=== PATIENT | female | born 1990 | race African-American/Black ===

== ENCOUNTER 2018-05-26 07:56 | Day surgery (SDC) | payer OTHER ==
[2018-05-26] MEDS ORDERED: fentaNYL 100 MCG/2 ML INJECTION (J3010) As Ordered (07:59)
[2018-05-26] MEDS ORDERED: NEOSTIGMINE 10 MG/10 ML VIAL (J2710) As Ordered (07:59)
[2018-05-26] MEDS ORDERED: GLYCOPYRROLATE INJ 0.2 MG/ML 2 ML VIAL As Ordered (07:59)
[2018-05-26] MEDS ORDERED: LIDOCAINE 2% INJ 100 MG/5 ML SDV (FOR ANES.) As Ordered (07:59)
[2018-05-26] MEDS ORDERED: PROPOFOL 200 MG/20 ML VIAL As Ordered (07:59)
[2018-05-26] MEDS ORDERED: MIDAZOLAM INJ 2 MG/2 ML VIAL (J2250) As Ordered (07:59)
[2018-05-26] MEDS ORDERED: ONDANSETRON 4MG/2ML VIAL (J2405) As Ordered (07:59)
[2018-05-26] MEDS ORDERED: KETOROLAC 60 MG/2 ML VIAL (J1885) As Ordered (07:59)
[2018-05-26] MEDS ORDERED: ROCURONIUM BROMIDE 50 MG/5 ML VIAL As Ordered (07:59)
[2018-05-26] MEDS ORDERED: dexameTHASONE 4 MG/ML 1ML VIAL (J1100) As Ordered (07:59)
[2018-05-26] MEDS ORDERED: LR 1,000 ML IV ×3 (08:15→11:30)
[2018-05-26 09:16] LABS: CONTROL LINE HCG INT CTR LINE PRESENT; HCG, SERUM QUALITATIVE NEGATIVE (NEGATIVE)
[2018-05-26] MEDS ORDERED: fentaNYL 100 MCG/2 ML INJECTION (J3010) IV (11:15)
[2018-05-26] MEDS ORDERED: NORCO, ANEXSIA 5/325MG TABLET (HYDROcodone/ACETAMINOPHEN) As Ordered (11:18)
[2018-05-26] MEDS: ONDANSETRON 4MG/2ML VIAL (J2405) IV (11:22)
[2018-05-26] MEDS: NORCO, ANEXSIA 5/325MG TABLET (HYDROcodone/ACETAMINOPHEN) PO ×2 (11:30→11:50)
[2018-05-26] MEDS ORDERED: NORCO, ANEXSIA 5/325MG TABLET (HYDROcodone/ACETAMINOPHEN) PO (11:30)
[2018-05-26] MEDS ORDERED: IBUPROFEN 600 MG TAB PO (15:00)
== END 2018-05-26 14:10 | disposition home or self-care (01) ==
LOC: M SDC 07:56
DX: N94.10 Unspecified dyspareunia (principal); N80.9 Endometriosis, unspecified; Z97.5 Presence of (intrauterine) contraceptive device
CPT/HCPCS: 58662

== ENCOUNTER 2018-07-18 16:36 | Emergency (ER) | payer OTHER ==
[2018-07-18] MEDS: IBUPROFEN 600 MG TAB PO (17:40)
== END 2018-07-18 18:11 | disposition home or self-care (01) ==
LOC: M ED 16:36
DX: S29.002A Unspecified injury of muscle and tendon of back wall of thorax, initial encounter (principal); S16.1XXA Strain of muscle, fascia and tendon at neck level, initial encounter; V49.49XA Driver injured in collision with other motor vehicles in traffic accident, initial encounter; Y92.410 Unspecified street and highway as the place of occurrence of the external cause
CPT/HCPCS: 72125

== ENCOUNTER → 2018-09-14 | Outpatient (REF) | payer OTHER ==
[2018-09-14 13:58] LABS: APPEARANCE, URINE CLOUDY (CLEAR); BACTERIA, URINE AUTO 1+ (NEGATIVE); BILIRUBIN, URINE AUTO NEGATIVE (NEGATIVE); BLOOD, URINE BLOOD 3+ (NEGATIVE); COLOR, URINE YELLOW (YELLOW); GLUCOSE, URINE (UA) AUTO NEGATIVE (NEGATIVE); KETONE, URINE AUTO NEGATIVE (NEGATIVE); LEUKOCYTE ESTERASE, URINE AUTO 3+ (NEGATIVE); MUCUS, URINE SMALL (NEGATIVE); NITRITE, URINE AUTO POSITIVE (NEGATIVE); PROTEIN, URINE AUTO 2+ mg/dL (NEGATIVE); RBC, URINE AUTO 135 /HPF (0-3); SPECIFIC GRAVITY URINE AUTO 1.014 (1.002-1.035); SQUAMOUS EPITHELIAL CELL UR AU 16 /HPF (0-6); UROBILINOGEN, URINE AUTO 0.2 mg/dL (0.0-2.0); WBC, URINE AUTO TNTC /HPF (0-3)
== END ==
LOC: M LAB REF 13:17
DX: N39.0 Urinary tract infection, site not specified (principal)
CPT/HCPCS: 81001

== ENCOUNTER → 2018-11-07 | Outpatient (REF) | payer OTHER ==
[~2018-11-07] MED LIST: HAIR1TAB5 PO; IBUP-1022 PO; MULT1TAB18 PO; ROBA500T PO
== END ==
LOC: M SFHCLERA 15:00
PROVIDERS: ATTEND Nurse Practitioner Family
DX: R39.9 Unspecified symptoms and signs involving the genitourinary system (principal)
CPT/HCPCS: 81002; 81025; 87088; 87186; G0463